=== PATIENT | female | born 1990 | race African-American/Black ===

== ENCOUNTER 2016-07-19 12:09 | Emergency (ER) | payer SELFPAY ==
--- NOTE | 2016-07-19 12:47 | PICIS ---
[facility] EMERGENCY RECORD TRIAGE ([facility] Jul 19, 2016 12:16 LGIB) TRIAGE NOTES: left leg pain since March on and off. describes it as pinching. ([facility] Jul 19, 2016 12:16 LGIB) PATIENT: NAME: Yuliya Bucio, AGE: 25, GENDER: female, : Thu1990, TIME OF GREET: Sat Jul 19, 2016 12:09, PREFERRED LANGUAGE: Jordanian, ETHNICITY: Not or , ECODE BILLING MAP: [facility], SSN: [id number], Zip Code: [address], KG WEIGHT: 90.72, PHONE: , , , PERSON ID: [id number], PAYMENT: [employer] Self Pay, PCP: ashley. ([facility] Jul 19, 2016 12:16 LGIB) COMPLAINT: Left Leg Pain. ([facility] Jul 19, 2016 12:16 LGIB) ADMISSION: URGENCY: 4 Non Urgent, ADMISSION SOURCE: Home, TRANSPORT: CAR, BED: ER -02. ([facility] Jul 19, 2016 12:16 LGIB) PROVIDERS: TRIAGE NURSE: Jolene Joshua RN. ([facility] Jul 19, 2016 12:16 LGIB) PREVIOUS VISIT ALLERGIES: No Known Drug Allergies. ([facility] Jul 19, 2016 12:16 LGIB) No Known Drug Allergies. (12:18 LGIB) KNOWN ALLERGIES No Known Drug Allergies CURRENT MEDICATIONS (12:37 KMOR) None VITAL SIGNS (12:18 LGIB) VITAL SIGNS: BP: 120/80, Pulse: 105, Resp: 18 (Non-Labored), Temp: 98.5 (Oral), Pain: 7, O2 sat: 99 on Room Air, Time: 07/19/2016 12:18. NURSING ASSESSMENT: EXTREMITY LOWER (12:19 KMOR) CONSTITUTIONAL: Patient arrives ambulatory, Gait steady, History obtained from patient, Patient appears comfortable, Patient cooperative, Patient alert, Oriented to person, place and time, Skin warm, Skin dry, Skin normal in color, Mucous membranes pink, Mucous membranes moist, Patient is well-groomed, Patient complains of Left leg pain, Left leg pain intermittent since March. Starts in hip and radiates down left lateral leg. PAIN: aching pain, sharp pain, shooting pain, to the left hip, to the left lower leg, on a scale 0-10 patient rates pain as 7. LEFT LOWER EXTREMITY: Left lower extremity assessment findings include capillary refill less than 2 seconds, Skin color normal, Skin temperature warm, Distal sensation intact, Muscle tone normal, muscle strength 5, no edema present, dorsalis pedis pulse is +3. RIGHT LOWER EXTREMITY: Right lower extremity assessment findings include capillary refill less than 2 seconds, Skin color normal, Skin temperature warm, Distal sensation intact, Muscle tone normal, muscle strength 5, dorsalis pedis pulse is +3. NOTES: Patient tolerated procedure well. &a-1R&a+25V*p+0X*f0206S*c202B*c15G*c2P*p-0X&a-25V&a+1R Name: Yuliya Bucio : 1990 F25 MedRec: [id number] AcctNum: [id number] Prepared: Sat Jul 19, 2016 12:48 by Interface Page 1 of 5 pMD [facility] EMERGENCY RECORD NURSING PROCEDURE: DISCHARGE NOTE (12:36 KMOR) DISCHARGE: Patient discharged to home, ambulating without assistance, driving self, unaccompanied, Summary of Care printed/ provided, Transition record given to patient, Discharge instructions given to patient, Simple or moderate discharge teaching performed, by GARDENIA Ames, Discharge instructions and follow up reviewed with patient. Pt ambulatory to discharge desk., Above person(s) verbalized understanding of discharge instructions and follow-up care. BELONGINGS: Belongings remain with patient, Valuables remain with patient. HPI EXTREMITY (12:33 [facility]) CHIEF COMPLAINT: Patient presents for evaluation of pain, to the left upper leg, to the left lower leg. HISTORIAN: History provided by patient, 25F presents with complaints of left leg pain. States the pain has been present since March. Has been seen here twice for the same complaint since January. Reports 'pinching' intermittent pain that occurs in her lateral thigh and lateral left calf, as well as occasionally in her right lateral thigh and left medial knee. States the pain is worse in the morning and after sitting, better with ambulation. Has had MRI, radiographs, and multiple US without positive results. Denies numbness, tingling, back pain, abdominal pain, or other complaints. MECHANISM OF INJURY: Unknown mechanism. LOCATION: primarily left leg, but occasionally right. QUALITY: Pain is sharp in nature, described as pinching. TIME COURSE: There has been no change in the patient's symptoms over time, are intermittent. ASSOCIATED WITH: Associated with distal neuro complaint, for 5 months, intermittent, Associated with tingling. EXACERBATED BY: Patient's condition exacerbated by sitting. RELIEVED BY: Patient's condition relieved by walking. ROS (12:37 [facility]) CONSTITUTIONAL: Negative constitutional review of systems, Historian denies chills, denies fever. CARDIOVASCULAR: Negative cardiovascular review of systems, Historian denies chest pain, denies palpitations. RESPIRATORY: Negative respiratory review of systems, Historian denies cough, denies shortness of breath. GI: Negative gastrointestinal review of systems, Historian denies abdominal pain, denies constipation, denies diarrhea, denies nausea, denies vomiting. GENITOURINARY FEMALE: Negative genitourinary review of systems, Historian denies dysuria, denies frequency. SKIN: Negative skin review of systems, Historian denies rash, &a-1R&a+25V*p+0X*y7730I*c202B*c15G*c2P*p-0X&a-25V&a+1R Name: Yuliya Bucio : 1990 F25 MedRec: [id number] AcctNum: [id number] Prepared: Sat Jul 19, 2016 12:48 by Interface Page 2 of 5 pMD [facility] EMERGENCY RECORD denies skin changes. NEUROLOGIC: Negative neurologic review of systems, Historian denies headache. pinching lower extremity pain. HEMO/LYMPHATIC: Normal hematologic/lymphatic system review, Historian denies abnormal blood clotting. PAST MEDICAL HISTORY (12:18 LGIB) MEDICAL HISTORY: No past medical history. FEMALE SURGICAL HISTORY: Surgical history of section, Notes: x1. verified 07/19/16. PSYCHIATRIC HISTORY: No previous psychiatric history,. verified 07/19/16. SOCIAL HISTORY: Patient denies alcohol use, Patient denies drug use, Patient has no smoking history. Verified 07/19/16. PHYSICAL EXAM CONSTITUTIONAL: Vital signs reviewed, Patient afebrile, Pulse normal, Blood pressure normal, Respiratory rate normal, Patient appears non toxic, Patient appears pain free, Patient alert and oriented to person, place and time. (12:37 JJA) NECK: Neck exam normal, Neck exam included findings of normal range of motion, Trachea midline, no meningeal signs, no cervical adenopathy, no tenderness. (12:37 JJAC) RESPIRATORY CHEST: Respiratory and chest exam normal, Respiratory exam included findings of no respiratory distress, Breath sounds clear. (12:37 JJAC) CARDIOVASCULAR: Cardiovascular assessment normal, Cardiovascular exam included findings of heart rate regular rate and rhythm, Heart sounds normal. (12:37 JJAC) ABDOMEN FEMALE: Abdominal exam included findings of abdomen nontender, Bowel sounds normal, no distension, no mass, no pulsatile masses, no peritoneal signs, no rigidity, no guarding, no rebound, Rovsing's sign absent. (12:37 JJAC) BACK: Back exam normal, Back exam included findings of normal inspection, range of motion normal, no tenderness. (12:37 JJA) LOWER EXTREMITY: Lower extremity exam included findings of inspection normal, Range of motion normal, Motor strength normal, Sensation intact, Posterior tibial pulse normal, Pedal pulse normal, Peter's negative, distal pulses intact, capillary refill less than 2 seconds, distal motor intact, distal sensory intact, no cyanosis, no clubbing, no edema, no calf tenderness, no palpable cords, Pelvis examination normal findings, Hip examination normal findings, Thigh normal, both sides, Knee examination normal findings, bilaterally, Lower leg normal, bilaterally, Ankle examination normal findings, bilaterally, Foot examination normal findings, bilaterally, Foot tendon function normal. (12:38 JJA) NEURO: Neuro exam normal, Neuro exam findings include patient oriented to person, place and time, Speech normal, Gait normal. (12:37 JJA) SKIN: Skin exam normal, Skin exam included findings of skin warm, &a-1R&a+25V*p+0X*k8626Z*c202B*c15G*c2P*p-0X&a-25V&a+1R Name: Yuliya Bucio Dena : 1990 F25 MedRec: [id number] AcctNum: [id number] Prepared: Sat Jul 19, 2016 12:48 by Interface Page 3 of 5 pMD [facility] EMERGENCY RECORD dry, and normal in color, no rash. (12:37 JJAC) EVENTS TRANSFER: Triage to Emergency Emergency Room -02. (Sat Jul 19, 2016 12:16 LGIB) Removed from Emergency Emergency Room -02. (12:39 KMOR) DOCTOR NOTES (12:38 JJAC) TEXT: Patient presents with continuing lower leg symptoms. Has had significant workup in the past for the same complaints without positive findings. Based on her completely normal physical exam and the unchanging nature of her symptoms, I do not believe she needs repeat emergency department workup for DVT or traumatic musculoskeletal injury. I believe she needs outpatient neurologic workup, and can return to the ED if symptoms worsen. PATIENT STATUS: Patient's status is unchanged since arrival to emergency department. PATIENT PLAN: The patient will be discharged, The patient will follow up with primary care physician. PROBLEM LIST No recorded problems DIAGNOSIS (12:32 JJAC) FINAL: PRIMARY: UNS MONONEUROPATHY UNS LOWER LIMB. DISPOSITION PATIENT: Disposition Type: Discharge, Disposition: *Discharge Home. (12:32 JJAC) Patient left the department. (12:39 KMOR) INSTRUCTION (12:33 JJAC) DISCHARGE: PERIPHERAL NEUROPATHY. FOLLOWUP: [facility], Neurology, [address] [place] [address], [address], [facility] [address], . SPECIAL: Follow up with Neurology at their next available appointment. Ask if they do EMG or Electromyelogram. Stretch in the mornings. PRESCRIPTION No recorded prescriptions IMAGING (12:38 KMOR) *DISCHARGE INSTRUCTIONS RECEIPT: Image captured from scanner. *SUPPLY CHARGE SHEET: Image captured from scanner. ADMIN DIGITAL SIGNATURE: GARDENIA Hernandez, Hui. (12:39 KMOR) MD Iris, Chan. (12:40 JJAC) Coe: &a-1R&a+25V*p+0X*y3060R*c202B*c15G*c2P*p-0X&a-25V&a+1R Name: Yuliya Bucio : 1990 F25 MedRec: [id number] AcctNum: [id number] Prepared: Sat Jul 19, 2016 12:48 by Interface Page 4 of 5 pMD [facility] EMERGENCY RECORD JJAC=MD Iris, Chan KMOR=GARDENIA Hernandez, Hui LGIB=GARDENIA Joshua, Jolene &a-1R&a+25V*p+0X*p5146Q*c202B*c15G*c2P*p-0X&a-25V&a+1R Name: Yuliya Bucio Dena : 1990 F25 MedRec: [id number] AcctNum: [id number] Prepared: Callum Jul 19, 2016 12:48 by Interface Page 5 of 5 pMD MTDD
--- NOTE | 2016-07-19 12:47 | ERRECORD ---
[facility] EMERGENCY RECORD HPI EXTREMITY (12:33 [facility]) CHIEF COMPLAINT: Patient presents for evaluation of pain, to the left upper leg, to the left lower leg. HISTORIAN: History provided by patient, 25F presents with complaints of left leg pain. States the pain has been present since March. Has been seen here twice for the same complaint since January. Reports 'pinching' intermittent pain that occurs in her lateral thigh and lateral left calf, as well as occasionally in her right lateral thigh and left medial knee. States the pain is worse in the morning and after sitting, better with ambulation. Has had MRI, radiographs, and multiple US without positive results. Denies numbness, tingling, back pain, abdominal pain, or other complaints. MECHANISM OF INJURY: Unknown mechanism. LOCATION: primarily left leg, but occasionally right. QUALITY: Pain is sharp in nature, described as pinching. TIME COURSE: There has been no change in the patient's symptoms over time, are intermittent. ASSOCIATED WITH: Associated with distal neuro complaint, for 5 months, intermittent, Associated with tingling. EXACERBATED BY: Patient's condition exacerbated by sitting. RELIEVED BY: Patient's condition relieved by walking. ROS (12:37 [facility]) CONSTITUTIONAL: Negative constitutional review of systems, Historian denies chills, denies fever. CARDIOVASCULAR: Negative cardiovascular review of systems, Historian denies chest pain, denies palpitations. RESPIRATORY: Negative respiratory review of systems, Historian denies cough, denies shortness of breath. GI: Negative gastrointestinal review of systems, Historian denies abdominal pain, denies constipation, denies diarrhea, denies nausea, denies vomiting. GENITOURINARY FEMALE: Negative genitourinary review of systems, Historian denies dysuria, denies frequency. SKIN: Negative skin review of systems, Historian denies rash, denies skin changes. NEUROLOGIC: Negative neurologic review of systems, Historian denies headache. pinching lower extremity pain. HEMO/LYMPHATIC: Normal hematologic/lymphatic system review, Historian denies abnormal blood clotting. PAST MEDICAL HISTORY (12:18 LGIB) MEDICAL HISTORY: No past medical history. FEMALE SURGICAL HISTORY: Surgical history of section, Notes: x1. verified 07/19/16. PSYCHIATRIC HISTORY: No previous psychiatric history,. verified 07/19/16. SOCIAL HISTORY: Patient denies alcohol use, Patient denies &a-1R&a+25V*p+0X*x9216R*c202B*c15G*c2P*p-0X&a-25V&a+1R Name: Yuliya Bucio : 1990 F25 MedRec: [id number] AcctNum: [id number] Prepared: Sat Jul 19, 2016 12:48 by Interface Page 1 of 3 pMD [facility] EMERGENCY RECORD drug use, Patient has no smoking history. Verified 07/19/16. KNOWN ALLERGIES No Known Drug Allergies CURRENT MEDICATIONS (12:37 KMOR) None VITAL SIGNS (12:18 LGIB) VITAL SIGNS: BP: 120/80, Pulse: 105, Resp: 18 (Non-Labored), Temp: 98.5 (Oral), Pain: 7, O2 sat: 99 on Room Air, Time: 07/19/2016 12:18. PHYSICAL EXAM CONSTITUTIONAL: Vital signs reviewed, Patient afebrile, Pulse normal, Blood pressure normal, Respiratory rate normal, Patient appears non toxic, Patient appears pain free, Patient alert and oriented to person, place and time. (12:37 JJAC) NECK: Neck exam normal, Neck exam included findings of normal range of motion, Trachea midline, no meningeal signs, no cervical adenopathy, no tenderness. (12:37 JJAC) RESPIRATORY CHEST: Respiratory and chest exam normal, Respiratory exam included findings of no respiratory distress, Breath sounds clear. (12:37 JJAC) CARDIOVASCULAR: Cardiovascular assessment normal, Cardiovascular exam included findings of heart rate regular rate and rhythm, Heart sounds normal. (12:37 JJAC) ABDOMEN FEMALE: Abdominal exam included findings of abdomen nontender, Bowel sounds normal, no distension, no mass, no pulsatile masses, no peritoneal signs, no rigidity, no guarding, no rebound, Rovsing's sign absent. (12:37 JJAC) BACK: Back exam normal, Back exam included findings of normal inspection, range of motion normal, no tenderness. (12:37 JJAC) LOWER EXTREMITY: Lower extremity exam included findings of inspection normal, Range of motion normal, Motor strength normal, Sensation intact, Posterior tibial pulse normal, Pedal pulse normal, Peter's negative, distal pulses intact, capillary refill less than 2 seconds, distal motor intact, distal sensory intact, no cyanosis, no clubbing, no edema, no calf tenderness, no palpable cords, Pelvis examination normal findings, Hip examination normal findings, Thigh normal, both sides, Knee examination normal findings, bilaterally, Lower leg normal, bilaterally, Ankle examination normal findings, bilaterally, Foot examination normal findings, bilaterally, Foot tendon function normal. [facility]12[facility] NEURO: Neuro exam normal, Neuro exam findings include patient oriented to person, place and time, Speech normal, Gait normal. (12[facility] SKIN: Skin exam normal, Skin exam included findings of skin warm, dry, and normal in color, no rash. (12[facility] &a-1R&a+25V*p+0X*f4861W*c202B*c15G*c2P*p-0X&a-25V&a+1R Name: Yuliya Bucio : 1990 F25 MedRec: [id number] AcctNum: [id number] Prepared: Callum Jul 19, 2016 12:48 by Interface Page 2 of 3 pMD [facility] EMERGENCY RECORD DOCTOR NOTES (12[facility] TEXT: Patient presents with continuing lower leg symptoms. Has had significant workup in the past for the same complaints without positive findings. Based on her completely normal physical exam and the unchanging nature of her symptoms, I do not believe she needs repeat emergency department workup for DVT or traumatic musculoskeletal injury. I believe she needs outpatient neurologic workup, and can return to the ED if symptoms worsen. PATIENT STATUS: Patient's status is unchanged since arrival to emergency department. PATIENT PLAN: The patient will be discharged, The patient will follow up with primary care physician. PROBLEM LIST No recorded problems DIAGNOSIS (12:32 JJA) FINAL: PRIMARY: UNS MONONEUROPATHY UNS LOWER LIMB. PRESCRIPTION No recorded prescriptions DISPOSITION PATIENT: Disposition Type: Discharge, Disposition: *Discharge Home. (12:32 JJA) Patient left the department. (12:39 KMOR) Coe: [place]=MD Iris, Chan KMOR=GARDENIA Hernandez, Hui BLACKWELLIB=GARDENIA Joshua, Jolene &a-1R&a+25V*p+0X*y8569D*c202B*c15G*c2P*p-0X&a-25V&a+1R Name: Yuliya Bucio Dena : 1990 F25 MedRec: [id number] AcctNum: [id number] Prepared: Callum Jul 19, 2016 12:48 by Interface Page 3 of 3 pMD MTDD
== END 2016-07-19 12:36 | disposition home or self-care (01) ==
LOC: BURERS 12:09
DX: G57.92 Unspecified mononeuropathy of left lower limb (principal)
CPT/HCPCS: 99283

== ENCOUNTER 2017-04-05 14:00 | Emergency (ER) | payer OTHER, SELFPAY | END 2017-04-05 14:17 | disposition home or self-care (01) | LOC: BURERS 14:00 | DX: N64.4 Mastodynia (principal) | CPT/HCPCS: 99283 ==

== ENCOUNTER 2018-03-16 11:45 | Emergency (ER) | payer SELFPAY ==
[2018-03-16] MEDS ORDERED: AMOXicillin 250 MG CAP ONE (12:15)
[2018-03-16] MEDS ORDERED: Benzonatate 100 MG CAP ONE (12:15)
== END 2018-03-16 12:33 | disposition home or self-care (01) ==
LOC: BURERS 11:45
DX: J20.9 Acute bronchitis, unspecified (principal); Z79.899 Other long term (current) drug therapy
CPT/HCPCS: 99283

== ENCOUNTER 2018-10-03 01:31 | Emergency (ER) | payer SELFPAY ==
[2018-10-03] MEDS ORDERED: Acetaminophen 500 MG TAB ONE (01:33)
[2018-10-03] MEDS ORDERED: Triple Antibiotic Oint 1 GM Packet ONE (01:33)
[2018-10-03] MEDS ORDERED: Adacel (T-DAP) 0.5 ML SYRINGE ONE (01:33)
[2018-10-03] MEDS ORDERED: Cephalexin 500 MG CAP ONE (01:46)
== END 2018-10-03 02:55 | disposition home or self-care (01) ==
LOC: BURERS 01:31
DX: S01.81XA Laceration without foreign body of other part of head, initial encounter (principal); V49.9XXA Car occupant (driver) (passenger) injured in unspecified traffic accident, initial encounter
CPT/HCPCS: 12013; 90471; 90715

== ENCOUNTER 2018-11-30 13:22 | Emergency (ER) | payer SELFPAY ==
--- NOTE | 2018-11-30 14:03 | RAD ---
RADIOGRAPH CHEST 1 VIEW: HISTORY: 28-year-old female with chest pain. FINDINGS: The visualized lung dugan are clear. The cardiomediastinal silhouette and hilar shadows are normal. The lateral costophrenic angles are sharp. The osseous structures appear normal. There is no pneu mothorax. IMPRESSION: Negative. jn [] POS: TPC
[2018-11-30 14:17] LABS: #Eosinphils 0.2 thou/uL (0.0-0.7); #Lymphocytes 1.8 thou/uL (1.20-3.40); #Monocytes 0.4 thou/uL (0.11-0.59); #Neutrophils 3.4 thou/uL (1.40-6.50); %Basophils 0.7 % (0.0-1.0); %Eosinophils 3.1 % (0.0-10.0); %Monocytes 7.6 % (0.0-10.0); %Neutrophils 58.6 % (42.0-75.0); Hemoglobin 11.8 g/dL (12.0-16.0); Hypochromia SLIGHT = 6-15 cells (100X) (0-5/hpf); MDiff Complete? YES; Mean Corpuscular HGB CONC 30.7 g/dL (32.0-36.0); Mean Corpuscular Hemoglobin 24.1 pg (27.0-31.0); Mean Corpuscular Volume 78.6 fL (78.0-98.0); Mean Platelet Volume 7.5 fL (7.4-10.4); Platelet Count 268 thou/uL (130-400); RBC Distribution Width 13.6 % (11.5-14.5); White Blood Cell (WBC) Count 5.8 thou/uL (4.8-10.8)
[2018-11-30 14:18] LABS: ALT (SGPT) 10 U/L (8-55); AST (SGOT) 13 U/L (5-34); Albumin 4.4 g/dL (3.5-5.0); Alkaline Phosphatase 63 U/L (40-150); Anion Gap 12 mmol/L (10-20); BUN (Urea Nitrogen) 8 mg/dL (7.0-18.7); Bilirubin, Total 0.3 mg/dL (0.2-1.2); Calc. Creatinine Clearance 0 mL/min (70-130); Calcium 9.7 mg/dL (7.8-10.44); Carbon Dioxide 26 mmol/L (22-29); Chloride 105 mmol/L (98-107); Estimated GFR-MDRD Greater than 90; Globulin 3.2 g/dL (2.4-3.5); Glucose 92 mg/dL (70-105); Potassium 3.9 mmol/L (3.5-5.1); Protein, Total 7.6 g/dL (6.0-8.3); Sodium 139 mmol/L (136-145)
== END 2018-11-30 14:36 | disposition home or self-care (01) ==
LOC: BURERS 13:22
DX: R07.89 Other chest pain (principal)
CPT/HCPCS: 71045; 80053; 84484; 85025; 85379; 93005